=== PATIENT | female | born 1970 | race Caucasian/White ===

== ENCOUNTER 2017-07-12 09:41 | Emergency (ER) | payer OTHER ==
[~2017-07-12] VITALS: Ht 152.4 cm; Wt 79.4 kg
[2017-07-12 09:45] VITALS: BP 131/78
--- NOTE | 2017-07-12 10:07 | ED GENERAL ADULT ---
History of Present Illness General Chief Complaint: General Adult Stated Complaint: LAC FROM DIRTY SCALPEL Source: patient Exam Limitations: no limitations Vital Signs & Intake/Output Vital Signs & Intake/Output Vital Signs Date Time Temp Pulse Resp B/P B/P Pulse O2 O2 Flow FiO2 Mean Ox Delivery Rate 07/12 0945 96.5 110 16 131/78 98 Room Air Allergies Coded Allergies: shellfish derived (Severe, ANAPHYLAXIS 07/12/17) Reconcile Medications No Known Home Medications Triage Note: 47 Y/O FEMALE PRESENTS S/P EXPOSURE IN OPERATING ROOM; WAS CUT WITH DIRTY #10 BLADE IN R [place]. STATES TETANUS UTD. KNOWN SOURCE PATIENT. WORKMANS COMP COMPLETED. Triage Nurses Notes Reviewed? yes Onset: Just prior to arrival Duration: minute(s): (30) Timing: remote history Injury Environment: work Severity: mild No Modifying Factors: none HPI: Patient is a 47-year-old female up-to-date with tetanus and hepatitis immunizations presenting to the emergency Department chief complaint of getting caught with a dirty scalpel in the operating room just prior to arrival. Patient reports that she accidentally bumped into a scalpel that one of the surgeons was using and hit her right elbow. Pain is currently mild to moderate. Denies any continued bleeding. She's been holding pressure. Denies taking for pain prior to arrival. Denies any other injuries. Denies nausea vomiting fevers or chills chest pain or shortness of breath. She cleaned the wound immediately and then told the truck shop supervisor. She does not think the source patient has HIV or hepatitis. (Brianda Sosa) Past History Travel History Traveled to [place] past 21 day No Medical History Any Pertinent Medical History? see below for history Neurological: NONE EENT: NONE Cardiovascular: NONE Respiratory: NONE Gastrointestinal: NONE Hepatic: NONE Renal: NONE Musculoskeletal: NONE Psychiatric: NONE Endocrine: NONE Blood Disorders: NONE Cancer(s): NONE FUEL ATTENDANT/Reproductive: NONE Surgical History Surgical History: non-contributory Psychosocial History What is your primary language Spanish Tobacco Use: Never used Family History Hx Contributory? No (Brianda Sosa) Review of Systems Review of Systems Constitutional: Reports: no symptoms. Comments Review of systems: See HPI, All other systems negative. Constitutional, no chills fever or weight loss HEENT: No visual changes no sore throat no congestion Cardiovascular: No chest pain ,palpitation Skin, no jaundice no rashes Respiratory: No dyspnea cough sputum or hemoptysis GI: No nausea no vomiting Muscle skeletal: no back pain, no neck pain, Neurologic: No numbness no confusion Psych: No stress anxiety Immunology: No splenectomy or history of AIDS (Brianda Sosa) Physical Exam Physical Exam General Appearance: well developed/nourished, no apparent distress, alert, comfortable Comments: Well-developed well-nourished person in no acute distress HEENT: Atraumatic, normocephalic Neck: Normal inspection Respiratory: No respiratory distress. Extremity: No edema, radial pulses are 2+ in the right upper extremity Doppler range of motion of her elbow without difficulty or pain. Neuro: Alert oriented x3, motor sensory normal Skin: One centimeter superficial laceration noted over the right olecranon, no surrounding erythema or edema. No active bleeding. No foreign bodies with inspection. Psych: Mood and affect is normal, memory and judgment is normal. Core Measures ACS in differential dx? No CVA/TIA Diagnosis: No Sepsis Present: No Sepsis Focused Exam Completed? No (Brianda Sosa) Progress Differential Diagnoses I considered the following diagnoses in my evaluation of the patient: Needlestick injury, laceration, abrasion Plan of Care: Orders Procedure Date/time Status HIV EXPOSURE/NEEDLESTICK 07/12 1007 Complete HUMAN BETA HCG SCREEN 07/12 1007 Complete HEPT C ANTIBODY 07/12 1007 Complete HEPT B SURFACE ANTIBODY 07/12 1007 Complete GAMMA GLUTAMYL TRANSFERASE 07/12 1007 Complete COMPREHENSIVE METABOLIC PANEL 07/12 1007 Complete CBC WITHOUT DIFFERENTIAL 07/12 1007 Complete TRNSFRASE ASPART AMINO 07/12 1007 Complete TRNSFRAS ALANINE AMINO 07/12 1007 Complete Laboratory Tests 07/12/17 1031: Anion Gap 13, Estimated GFR > 60, BUN/Creatinine Ratio 17.1, Glucose 81, Calcium 9.9, Total Bilirubin 0.5, GGT 30, AST 15, ALT 17, Alkaline Phosphatase 93, Total Protein 7.6, Albumin 4.4, Globulin 3.2, Albumin/Globulin Ratio 1.4, Total Beta HCG NEGATIVE, CBC w Diff NO MAN DIFF REQ, RBC 4.86, MCV 83.1, MCH 28.1, MCHC 33.8, RDW 13.7, MPV 7.8, Gran % 61.0, Lymphocytes % 30.6, Monocytes % 6.0, Eosinophils % 1.6, Basophils % 0.8, Absolute Granulocytes 4.6, Absolute Lymphocytes 2.3, Absolute Monocytes 0.5, Absolute Eosinophils 0.1, Absolute Basophils 0.1, Hep Bs Antibody REACTIVE, Hepatitis C Antibody NONREACTIVE, HIV 1 &2 Antibody NONREACTIVE Initial ED EKG: none Comments: 07/12/2017 10:14:23 AM patient declined HIV prophylaxis at this time. We francisco and sent blood work for baseline blood. Patient will call in 24 hours and follow-up with occupational medicine to get results. Patient up-to-date with immunizations. Wound was irrigated with saline and peroxide due to shrimp allergy. Steri-Strips placed. 07/12/2017 10:27:56 AM patient now stating that she's not sure if she is up-to- date with tetanus. Given prophylactic dose at this time. (Brianda Sosa) Departure Departure Time of Disposition: 1008 Disposition: HOME OR SELF CARE Condition: Stable Clinical Impression Primary Impression: Needle stick injury Secondary Impressions: Laceration Referrals: Bryan LOMELI,Mello Byrd (PCP/Family) Additional Instructions: Follow-up with occupational medicine. You can call the emergency department in 24 hours for all results or follow-up with occupational medicine as they can give you the results. Phone number for the emergency department is [phone]. Keep wound clean. Steri-Strips will fall off on their own in 3-4 days. Take Motrin and Tylenol [id number] for any aches or pains. Return if he develop any increased redness pain or fevers. Departure Forms: Customer Survey [employer] Employee Acc Report General Discharge Information Prescriptions: Current Visit Scripts No Known Home Medications (Brianda Sosa) PA/CT TECHNICIAN Co-Sign Statement Statement: ED Attending supervision documentation- [] I saw and evaluated the patient. I have also reviewed all the pertinent lab results and diagnostic results. I agree with the findings and the plan of care as documented in the PA's/CT TECHNICIAN's documentation. [X] I have reviewed the ED Record and agree with the PA's/CT TECHNICIAN's documentation. [] Additions or exceptions (if any) to the PAs/CT TECHNICIAN's note and plan are summarized below: [] (Chad LOMELI,Efren Corona) Procedures Laceration/Wound Repair Laceration/Wound Repair: Wound Location: upper extremity Wound's Depth, Shape: linear, superficial Wound Length (cm): 1 Wound Explored: clean, irrigated extensively Irrigated w/ Saline (ccs): 500 Betadine Prep? No Wound Repaired With: Steri-strips Tetanus Status: up to date Progress: Tolerated procedure well. (Yaima WELSH,Brianda) Critical Care Note Critical Care Note Critical Care Time: non-applicable (Brianda Sosa)
[2017-07-12 10:46] LABS: ABSOLUTE BASOPHIL COUNT 0.1 /CUMM (0.0-0.2); ABSOLUTE EOSINOPHIL COUNT 0.1 /CUMM (0.0-0.7); ABSOLUTE GRANULOCYTE CT 4.6 /CUMM (1.4-6.5); ABSOLUTE LYMPH COUNT 2.3 /CUMM (1.2-3.4); ABSOLUTE MONOCYTE COUNT 0.5 /CUMM (0.10-0.60); BASOPHIL % 0.8 % (0.0-2.0); EOSINOPHIL % 1.6 % (0-5); HEMATOCRIT 40.3 % (37-47); MEAN CORPUSCULAR HGB 28.1 PG (27.0-31.0); MEAN CORPUSCULAR HGB CONC 33.8 G/DL (33.0-37.0); MEAN CORPUSCULAR VOLUME 83.1 FL (81.0-99.0); MEAN PLATELET VOLUME 7.8 FL (7.4-10.4); PLATELET COUNT 410 /CUMM (130-400); RBC DISTRIBUTION WIDTH 13.7 % (11.5-14.5); RED BLOOD CELL CT 4.86 /CUMM (4.20-5.40); WHITE BLOOD CELL COUNT 7.5 /CUMM (4.8-10.8)
== END 2017-07-12 10:39 ==
LOC: ERH 09:41
PROVIDERS: Physician Assistant
DX: S51.011A Laceration without foreign body of right elbow, initial encounter (principal); W26.0XXA Contact with knife, initial encounter
CPT/HCPCS: 86803; 87389; 90471; 90714